=== PATIENT | male | born 1940 | race African-American/Black ===

== ENCOUNTER 2017-08-05 02:37 | Emergency (ER) | payer MEDICARE ==
[~2017-08-05] VITALS: Ht 177.8 cm; Wt 98.0 kg
[2017-08-05] MEDS ORDERED: ASPI81TA42 PO (02:56)
[2017-08-05] MEDS ORDERED: ATOR40TA28 PO (02:56)
[2017-08-05] MEDS ORDERED: WARF1 PO (02:56)
[2017-08-05] MEDS ORDERED: METO25 PO (02:56)
[2017-08-05] MEDS ORDERED: LOSA50TA37 PO (02:56)
[2017-08-05] MEDS ORDERED: ADV100 IH (04:03)
[2017-08-05] MEDS ORDERED: GuaiFENesin/D-METHORPHAN [SUGAR-FREE] 200-20MG/10 ML SYRUP UDCUP PO ONE (05:00)
[2017-08-05] MEDS ORDERED: ALBUTEROL SULFATE 2.5 MG/0.5 ML NEB SOLUTION NEB ONE (05:00)
[2017-08-05] MEDS ORDERED: PredniSONE 20 MG TABLET PO ONE (05:00)
[2017-08-05] MEDS ORDERED: IPRATROPIUM BROMIDE 0.5 MG/2.5 ML NEB SOLUTION NEB ONE (05:00)
[2017-08-05 05:34] VITALS: BP 125/76
== END 2017-08-05 05:35 | disposition home or self-care (01) ==
LOC: EMS 02:39
DX: J44.1 Chronic obstructive pulmonary disease with (acute) exacerbation (principal); J06.9 Acute upper respiratory infection, unspecified; J40 Bronchitis, not specified as acute or chronic; F17.210 Nicotine dependence, cigarettes, uncomplicated; R51 Headache; Z79.82 Long term (current) use of aspirin
CPT/HCPCS: 71045; 94640; 99283; 99406; J7512